=== PATIENT | male | born 2000 | race Caucasian/White ===

== ENCOUNTER 2021-01-10 23:07 | Emergency (ER) | payer OTHER ==
[~2021-01-10 23:07] MED LIST: ALBUTEROL0.83 MG/ML IH; PROAIR HFA0.09 MG/AC IH
== END 2021-01-10 23:33 | disposition left against medical advice (07) ==
LOC: COL.ER 23:07
DX: R53.81 Other malaise (principal)

== ENCOUNTER 2021-04-05 12:46 | Day surgery (SDC) | payer OTHER ==
[~2021-04-05] VITALS: Ht 185.4 cm; Wt 77.5 kg
[~2021-04-05 12:46] MED LIST changes: +LEXAPRO 10MG10 MG PO
[2021-04-05 14:18] VITALS: BP 135/93; PULSE 97; TEMP 98.9
[2021-04-05 15:05] VITALS: BP 110/54; PULSE 83; TEMP 97.6
--- NOTE | 2021-04-05 15:05 | NUR ---
pt returned to [facility] via cart, walked to chair. family member in room, takes water. no c/o, call light in reach
[2021-04-05 15:20] VITALS: BP 110/70; PULSE 79
--- NOTE | 2021-04-05 15:20 | NUR ---
into see pt
[2021-04-05 15:35] VITALS: BP 108/71; PULSE 84
--- NOTE | 2021-04-05 15:35 | NUR ---
iv d'cd intact, reviewed discharge inst. with pt and to con't on protonix. reviewed precautions and followup with verbal understanding. pt discharged via w/c to car with family
--- NOTE | 2021-04-05 16:31 | NUR ---
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
== END 2021-04-05 15:35 | disposition home or self-care (01) ==
LOC: SDCO 12:46
DX: K21.9 Gastro-esophageal reflux disease without esophagitis (principal); R10.13 Epigastric pain; K22.9 Disease of esophagus, unspecified; Z79.899 Other long term (current) drug therapy
CPT/HCPCS: J2704; J7120